=== PATIENT | male | born 1960 | race Caucasian/White ===

== ENCOUNTER → 2019-09-15 | Outpatient (CLI) | payer OTHER | END | disposition home or self-care (01) | LOC: CVU 06:50 | PROVIDERS: ATTEND Internal Medicine Cardiovascular Disease | DX: I73.9 Peripheral vascular disease, unspecified (principal); I10 Essential (primary) hypertension; E78.5 Hyperlipidemia, unspecified; E11.9 Type 2 diabetes mellitus without complications; Z87.891 Personal history of nicotine dependence | CPT/HCPCS: 93922 ==

== ENCOUNTER → 2019-12-14 | Outpatient (CLI) | payer OTHER | END | disposition home or self-care (01) | LOC: CFH 07:33 | PROVIDERS: ATTEND Internal Medicine Cardiovascular Disease | DX: I34.8 Other nonrheumatic mitral valve disorders (principal); I10 Essential (primary) hypertension; R93.1 Abnormal findings on diagnostic imaging of heart and coronary circulation | CPT/HCPCS: 93306; 93356 ==